=== PATIENT | female | born 1950 | race Caucasian/White ===

== ENCOUNTER 2017-10-27 10:51 | Emergency (ER) | payer OTHER ==
[~2017-10-27] VITALS: Ht 165.1 cm; Wt 87.5 kg
[2017-10-27 10:58] VITALS: BP 129/75; PULSE 68; RESP 16; TEMP 98.7; O2SAT 98
[2017-10-27] MEDS ORDERED: ACETAMINOPHEN 500 MG CPLT PO ONE (11:15)
[2017-10-27] MEDS ORDERED: SYNT88TA PO (11:16)
--- NOTE | 2017-10-27 11:19 | PD ---
HPI Chief Complaint: Musculoskeletal Complaint Time Seen by Provider: 11:03 Travel History International Travel<30 days: No Contact w/Intl Traveler<30days: No Traveled to known affect area: No History of Present Illness HPI This is a 66-year-old female who has a history of DVT 10 years ago who presents to the emergency department with 2 days of calf pain, constant, sharp, radiating up into the back of her thigh, worse with walking, improved with rest. She denies any associated shortness of breath or chest pain. She is not currently on any anticoagulation. 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 She denies any recent injuries and has not been on her feet more often. [facility] Past Medical History Narrative Medical hypothyroidism Hx Anticoagulant Therapy: No ?: Not Social History Tobacco Use: No Allergies-Medications (Allergen,Severity, Reaction): Coded Allergies: Penicillins (Verified Allergy, Severe, Anaphylaxis, 10/27/17) Uncoded Allergies: ALL CILLINS (Allergy, Severe, Anaphylaxis, 10/27/17) Reported Meds & Prescriptions Reported Meds & Active Scripts Active Reported Synthroid (Levothyroxine Sodium) 88 Mcg Tab 88 Mcg PO DAILY Review of Systems Except as stated in HPI: all other systems reviewed are Neg Physical Exam Narrative GENERAL:Well appearing, no acute distress SKIN: Focused skin assessment warm and dry. HEAD: Atraumatic. Normocephalic. EYES: Pupils equal and round. No injection or drainage. ENT: Moist mucous membranes NECK: Trachea midline. CARDIOVASCULAR: Regular rate and rhythm. No murmur appreciated. 2+ d.p. pulses bilaterally with normal capillary refill. RESPIRATORY: Clear to auscultation. Breath sounds equal bilaterally. GASTROINTESTINAL: Abdomen soft, non-tender, nondistended. MUSCULOSKELETAL: Tender to palpation over the left posterior calf NEUROLOGICAL: Awake and alert. No obvious cranial nerve deficits. Moving all extremities PSYCHIATRIC: Appropriate mood and affect; insight and judgment normal. Data Data Last Documented VS Vital Signs Date Time Temp Pulse Resp B/P (MAP) Pulse Ox O2 Delivery O2 Flow Rate FiO2 10/27/17 10:58 98.7 68 16 129/75 (93) 98 Orders Orders Us Leg Venous Doppler (10/27/17 ) Acetaminophen (Tylenol) (10/27/17 11:15) [facility] Medical Decision Making Medical Screen Exam Complete: Yes Emergency Medical Condition: Yes Interpretation(s) Last 24 hours Impressions Lower Extremity Ultrasound 10/27/17 0000 Signed Impressions: CONCLUSION: 1. Negative for deep venous thrombosis. 2. Thrombosis superficial varicosities medial calf. Differential Diagnosis DVT, Johnson's cyst, superficial thrombophlebitis, cellulitis, muscle strain Narrative Course This is a 66-year-old female who presents to the emergency department with pain in her calf. She has a benign neurovascular exam. She has no warmth to suggest cellulitis. Ultrasound was negative for DVT but demonstrates thrombosis of varicose veins in the area that she has pain. I suspect this reflects superficial thrombophlebitis. I think it is reasonable to treat her pain with anti-inflammatories. Patient will be discharged home. Diagnosis Primary Impression: Superficial thrombophlebitis Qualified Codes: I80.02 - Phlebitis and thrombophlebitis of superficial vessels of left lower extremity Patient Instructions: General Instructions Additional Instructions: If you continue to have pain in 10 days you should have a repeat ultrasound. Apply warm compresses to your calf and take anti-inflammatories as needed for pain. Med/Other Pt SpecificInfo: Prescription(s) given Scripts Naproxen (Naproxen) 375 Mg Tab 375 MG PO BID Y for PAIN SCALE 4 TO 10, #20 TAB 0 Refills Prov: Patito Chandra MD 10/27/17 Disposition: 01 DISCHARGE HOME Condition: Stable Patito Chandra MD Oct 27, 2017 11:19
--- NOTE | 2017-10-27 11:51 | RADRPT ---
EXAM DATE: 10/27/2017 11:46 AM EDT AGE/SEX: 66 years / Female INDICATIONS: Left leg pain. CLINICAL DATA: This is the patient's initial encounter. Patient reports that signs and symptoms have been present for 1 day and indicates a pain score of 5/10. MEDICAL/SURGICAL HISTORY: . . COMPARISON: No prior exams available for comparison. No external comparison. TECHNIQUE: Venous ultrasound of both lower extremities was performed from the inguinal ligament to t he proximal calf. Real-time, color Doppler and spectral tracing, compression and augmentation techni ques were used. FINDINGS: Negative for deep venous thrombosis. There is a venous thrombosis a varicose vein left proximal calf. This is superficial. CONCLUSION: 1. Negative for deep venous thrombosis. 2. Thrombosis superficial varicosities medial calf. Electronically signed by: Will Danielson MD 10/27/2017 11:50 AM EDT
[2017-10-27] MEDS ORDERED: NAPR-855 PO (11:56)
== END 2017-10-27 12:28 | disposition home or self-care (01) ==
LOC: PHED 10:51
DX: I80.02 Phlebitis and thrombophlebitis of superficial vessels of left lower extremity (principal); E03.9 Hypothyroidism, unspecified; Z79.899 Other long term (current) drug therapy; Z88.0 Allergy status to penicillin; Z86.718 Personal history of other venous thrombosis and embolism
CPT/HCPCS: 93971